=== PATIENT | female | born 1980 | race Caucasian/White ===

== ENCOUNTER → 2018-06-18 14:18 | Outpatient (CLI) | payer OTHER, SELFPAY | PROVIDERS: Family Provider Family Medicine; PCP Family Medicine; Visit Provider Family Medicine | DX: M54.40 Lumbago with sciatica, unspecified side (principal) | CPT/HCPCS: 72110 ==

== ENCOUNTER → 2018-09-29 10:56 | Outpatient (CLI) | payer OTHER, SELFPAY ==
--- NOTE | 2018-09-29 11:03 | MRI_ITS ---
STUDY: MRI LUMBAR SPINE WITHOUT CONTRAST REASON FOR EXAM: Female, 38 years old. Sciatica and low back pain with left leg pain TECHNIQUE: Standardized fat and water weighted pulse sequences were obtained in the sagittal and axial planes. COMPARISON: None FINDINGS: T12-L1: Normal endplates. Normal disc height, hydration and morphology. Normal bilateral facet joints. Normal central canal and bilateral lateral recesses. Normal bilateral intervertebral neural foramina. Normal lumbar lordosis. There is no substantial scoliosis. Normal conus medullaris that terminates at the L1 level. L1-2: Normal endplates. Normal disc height, hydration and morphology. Normal bilateral facet joints. Normal central canal and bilateral lateral recesses. Normal bilateral intervertebral neural foramina. L2-3: Bulging annulus with mild central canal stenosis. L3-4: Bulging annulus and central disc protrusion with mild central canal stenosis. L4-5: Bulging annulus with superimposed central and left paracentral disc protrusion. Moderate central canal and mild bilateral foraminal stenoses. L5-S1: Central and left paracentral disc protrusion with mass effect on the transiting left S1 nerve root and severe left lateral recess stenosis. Bulging annulus with mild bilateral foraminal stenoses. Normal visualized sacral ala. Normal visualized paraspinous soft tissue structures. MRI/Spine Lumbar (Routine) IMPRESSION: Multilevel degenerative disease as described. Disc protrusion at the L5-S1 level with severe left lateral recess stenosis and mass effect on the transiting left S1 nerve root. Electronically Signed: Brent Alba MD at 13:26 EST Tel , Service support ,
== END ==
PROVIDERS: Family Provider Family Medicine; PCP Family Medicine; Referring Provider Family Medicine; Visit Provider Family Medicine
DX: M51.36 Other intervertebral disc degeneration, lumbar region (principal)
CPT/HCPCS: 72148

== ENCOUNTER 2018-09-30 10:30 | Outpatient (RCR) | payer OTHER, SELFPAY ==
--- NOTE | 2018-07-06 13:24 | HP.PTEVAL ---
Patient's Visit Information MONA WILSON is a 38 year old F referred to Physical Therapy by Aldo Guerrero MD with a diagnosis of LOW BACK PAIN ,BILATERAL SCIATICA. Date of Evaluation: 07/06/18 Physical Therapist: Josemanuel Petersen PT, - Visit Plan Frequency: 2x /Week Duration: 4 Weeks Plan: MIS EX'S WITH PROGRESSION OF FORCES,ANR STRETCHING,POSTURAL EX'S ,MODALITIES FOR PAIN RELEIVE,AND DLS PROGRAM ABLE - Subjective Subjective: This 38 y/o female presents to physical therapy with low back pain ,bilateral sciatica. Patient has had low back pain last year ,then pain started hamstring,calf ,ankle past 2weeks.Tried chiropractor 8 years ago.Patinet intially symptoms where intermittant in luimbar pain . But wrappping presents got up symptoms became more constant.Seen Dr ly,x-rays DDD.Symptoms worse with bending ,lifting,sitting,standing, Symptoms some better rest ,walking.Denies parathesia/tingling-. Bowel/bladder-. Coughing/sneezing-. Patient symptoms adffects ADL'S and housework tasks. Symptoms affect QOL. SOCAIL: . VOCATION: homemaker - Pain Left Lower Extremity Pain Intensity (Out of 10): 7 Pain Intensity Range: 10 - Objective POSTURE: WFL. GAIT:normal reciprocal pattern ,mild decrease stance time. NEURO: denies parthesia/tingling ,reflexes L3-4,L4-5,L5-S1 3/3. PALPATION: unremarkable. MMT: quads left + ANR,right 4/5 ,hams 4/5,GT ext 4/5,DF 4/5,hip flexion 4/5. LUMBAR ROM: flexion MOD loss pain, side glides min loss,extension WFL,. INTACT HEEL WALKING ,DIFFICULTY WITH TOE WALKING - Special Tests L/S Slump test left side: Positive L/S Slump test right side: Negative L/S Left Straight Leg Raise: Positive L/S Right Straight Leg Raise: Negative L/S Left Femoral Nerve Tension: Negative L/S Right Femoral Nerve Tension: Negative Lumbar Standing: Flexion - Mechanical Response: No effect Lumbar Standing: Flexion - Symptoms During Testing: Increases Lumbar Standing: Flexion - Symptoms After Testing: Peripheralized Lumbar Standing: Extension - Mechanical Response: No effect Lumbar Standing: Extension - Symptoms During Testing: Decreases Lumbar Standing: Extension - Symptoms After Testing: Better Lumbar Standing: Right Side Granger - Symptoms During Testing: No effect Lumbar Standing: Right Side Granger - Symptoms After Testing: No effect Lumbar Standing: Left Side Granger - Mechanical Response: No effect Lumbar Standing: Left Side Granger - Symptoms During Testing: No effect Lumbar Standing: Left Side Granger - Symptoms After Testing: No effect Lumbar Lying: Flexion - Mechanical Response: No effect Lumbar Lying: Flexion - Symptoms During Testing: Increases Lumbar Lying: Flexion - Symptoms After Testing: Worse Lumbar Lying: Extension - Mechanical Response: No effect Lumbar Lying: Extension - Symptoms During Testing: Decreases Lumbar Lying: Extension - Symptoms After Testing: Better - Goals Goal 1:: Patient to be independant with HEP Goal Time Frame: 4-6 Weeks Goal 2:: Independant with posture /body mechanics . Goal Time Frame: 4-6 Weeks Goal 3:: Patient decrease lumbar radicular symptoms by 75 % or greater to improve function,. Goal Time Frame: 4-6 Weeks Goal 4:: Patient to improve lumbar ROM for flexion of recovery Goal Time Frame: 4-6 Weeks Goal 5:: Patient be d/c to prophalxis to diminish reccurance of symptosm Goal Time Frame: 4-6 Weeks Goal 6:: Patient resolve ANR for function of recovery Goal Time Frame: 4-6 Weeks - Rehabilitation Potential Physical Therapy Diagnosis: This presents with lumbar radiculopathy with + signs of ANR as well,symptoms worse with flexion beter with extension and correction of posture,+ slump test. benifit from skilled PT Rehabilitation Potential: Good - Anticipated Interventions Patient/Client Instruction: Educate patient on: Condition, Plan of Care For the Purpose of:: To decrease pain, To increase ROM, To improve muscle performance and motor function, To increase tolerance to activity/condition/position, To improve ability of physical actions for home/community/work/leisure, To improve gait and locomotor functions, To improve health of tissue, To decrease soft tissue restriction, To increase flexibility/ROM, To reduce risk of recurrence, To improve health and function, To improve ability to perform tasks related to life management Therapeutic Exercise to Include: Strength training, Body mechanics, Postural training, Flexibilty training, Dynamic Lumbar Stabilization, Mis Exercises For the Purpose of:: To decrease pain, To increase ROM, To improve muscle performance and motor function, To improve ability to perform ADL's, To improve ability of physical actions for home/community/work/leisure, To improve health of tissue, To decrease soft tissue restriction, To increase flexibility/ROM, To prevent re-injury Manual Therapy Techniques to Include: Mobilization Comment: LUMBAR For the Purpose of:: To decrease pain, To increase ROM, To improve muscle performance and motor function, To increase tolerance to activity/condition/position, To improve ability of physical actions for home/community/work/leisure, To improve health of tissue, To decrease soft tissue restriction, To increase flexibility/ROM, To improve ability to perform tasks related to life management TENS: Yes IF ES: Yes Cryotherapy (ice pack, ice massage): Yes Thermo therapy (hot pack): Yes Ultrasound (thermal/non thermal): Yes For the Purpose of:: To decrease pain, To decrease swelling/inflammation, To increase ROM, To improve nutrient delivery to tissue, To improve health of tissue, To decrease soft tissue restriction Thank you for the opportunity to evaluate your patient. For Medicare and Medicare HMO plans, please review the plan of care and approve it. It will need to be FAXED BACK to us at [phone] for Medicare purposes. Please let me know if there are questions or concerns regarding this plan of care. Physician Signature: Date:
--- NOTE | 2018-12-08 08:46 | HP.PTDCSUM ---
HP - PT D/C Summary It has been my pleasure to treat MONA WILSON under orders from Aldo Guerrero MD, for the diagnosis of LOW BACK PAIN ,BILATERAL SCIATICA for a total of 20 visit(s). Discharge Date: Please see the following information for a summary of their discharge status. - Subjective Subjective: Patient had MRI showed protrusion disc with mass. SEE MRI - Pain Left Lower Extremity Pain Intensity (Out of 10): 1 Bilateral Back Pain Intensity (Out of 10): 0 - Overall Improvement % Improvement: 70 - Objective Objective/Function: POSTURE: WNL. GAIT: normal caitie. LUMBAR ROM: FLEXION WNL,EXTENSION WNL,SIDE GLIDE WNL. -SLR. -ANR - Goals Goal 1:: Patient to be independant with HEP Goal 2:: Independant with posture /body mechanics . Goal 3:: Patient decrease lumbar radicular symptoms by 75 % or greater to improve function,. Goal 4:: Patient to improve lumbar ROM for flexion of recovery Goal 5:: Patient be d/c to prophalxis to diminish reccurance of symptosm Goal 6:: Patient resolve ANR for function of recovery - Plan Plan: PLAN TO SEE [facility]ENTAL CLERK. TODAY PATIENT DOING WELL - D/C Information If there are questions or concerns regarding this patient's physical therapy, please feel free to call me at [phone]. Thank you for the referral of this patient. Sincerely, Josemanuel Petersen, PT, Cert MDT, OCS
== END 2018-09-30 19:00 | disposition home or self-care (01) ==
LOC: PT 10:30
PROVIDERS: Family Provider Family Medicine; PCP Family Medicine; Visit Provider Family Medicine
DX: M54.5 Low back pain (principal); M54.32 Sciatica, left side; M54.31 Sciatica, right side
CPT/HCPCS: 97014; 97035; 97110; 97161; 97530; G0283

== ENCOUNTER → 2018-12-21 10:32 | Outpatient (CLI) | payer BC, SELFPAY ==
[2018-12-21 10:25] VITALS: BMI 25.0
--- NOTE | 2018-12-21 10:34 | RAD_ITS ---
STUDY: X-RAY - LUMBAR SPINE REASON FOR EXAM: Female, 38 years old. Pain. TECHNIQUE: 4 view(s) of the lumbar spine were obtained, including lateral flexion and extension views. COMPARISON: MRI lumbar spine September 29, 2018; 4 plain film views of the lumbar spine August 18, 2018. FINDINGS: Normal lumbar lordosis. There is no substantial scoliosis. There is a normal alignment of the vertebrae. There is limited range of motion on flexion and extension, but no instability is demonstrated. Normal vertebral bodies and endplates. There is stable degenerative narrowing of the L4-5 and L5-S1 intervertebral disc heights. There is no demonstrated acute osseous destructive lesion or fracture. Grossly unremarkable facet articulations. The soft tissue structures are unremarkable. RAD/L/S Spine Min 4 Views IMPRESSION: Stable degenerative narrowing of the L4-5 and L5-S1 intervertebral disc heights. Electronically Signed: Tra Conway, at 12:28 EST , Service support ,
== END ==
PROVIDERS: Family Provider Family Medicine; PCP Family Medicine; Referring Provider Orthopaedic Surgery; Visit Provider Orthopaedic Surgery
DX: M54.5 Low back pain (principal)
CPT/HCPCS: 72110

== ENCOUNTER → 2024-09-13 | Outpatient (CLI) | payer BC, SELFPAY ==
[2024-09-13 12:15] LABS: Absolute Lymphocyte Count 2.73 X10^3/uL (0.83-4.51); Basophil# 0.05 X10^3/uL; Basophil% 0.7 % (0-1); Eosinophils% 1.3 % (0-5); Hematocrit 36.2 % (37-47); Hemoglobin 11.3 g/dL (12.0-15.0); Lymphocyte # 2.73 X10^3/ul (0.83-4.51); Lymphocyte % 36.8 % (19-41); Mean Corp Hgb Conc 31.2 g/dL (32-36); Mean Corpuscular Hgb 27.1 pg (27.0-32.0); Mean Corpuscular Volume 86.8 fL (81-99); Mean Platelet Vol. 9.7 fl (6.2-12.0); Monocyte# 0.53 X10^3/uL; Monocyte% 7.1 % (0-10); NRBC Flagged by Analyzer 0 % (0-5); Neutrophil # 3.99 X10^3/uL (2.7-7.7); Neutrophil % 53.8 % (47-70); Platelet Count 466 K/mm3 (150-450); RBC Distribution Width CV 14.1 % (11.6-14.6); RBC Distribution Width SD 45.1 fl (35.1-43.9); Red Blood Count 4.17 M/mm3 (4.2-5.4); White Blood Count 7.4 K/mm3 (4.4-11.0)
[2024-09-13 12:36] LABS: AST(SGOT) 15 U/L (15-37); Alanine Aminotransfer ALT/SGPT 22 U/L (13-56); Albumin, Serum 3.8 g/dL (3.2-5.0); Alkaline Phosphatase 83 U/L (45-117); Anion Gap 3 (5-15); BUN 10 mg/dL (7-18); BUN/Creat Ratio 13.9 RATIO (10-20); Chloride 103 mmol/L (98-107); Cholesterol 175 mg/dL (200); Creatinine, Serum 0.72 mg/dL (0.55-1.02); EST Glomerular Filtration Rate 95 mL/min (>60); Est Glom Filt Rate - Afr Amer 114 mL/min (>60); Glucose 92 mg/dL (74-106); High Density Lipoprotein 74 mg/dL; Protein, Total 7.8 g/dL (6.4-8.2); Sodium Level 133 mmol/L (136-145); Triglycerides 108 mg/dL; Very Low Density Lipoprotein 22 mg/dL (5-40)
== END | disposition home or self-care (01) ==
LOC: BFHLAB 10:18
PROVIDERS: PCP Nurse Practitioner Family; Referring Provider Nurse Practitioner Family; Visit Provider Nurse Practitioner Family
DX: Z00.01 Encounter for general adult medical examination with abnormal findings (principal)
CPT/HCPCS: 36415; 80053; 80061; 85025

== ENCOUNTER → 2025-08-31 | Outpatient (CLI) | payer BC, SELFPAY ==
--- NOTE | 2025-08-31 13:29 | MRI_ITS ---
PROCEDURE: MRI/Spine Lumbar (Routine)
== END | disposition home or self-care (01) ==
PROVIDERS: PCP Nurse Practitioner Family; Referring Provider Nurse Practitioner Family; Visit Provider Nurse Practitioner Family
DX: M51.379 Other intervertebral disc degeneration, lumbosacral region without mention of lumbar back pain or lower extremity pain (principal)
CPT/HCPCS: 72148